=== PATIENT | male | born 1965 | race African-American/Black ===

== ENCOUNTER 2019-05-08 22:47 | Emergency (ER) | payer BC, OTHER ==
--- NOTE | 2019-05-08 22:49 | PDOC ---
History of Present Illness - General Chief Complaint: Pain, Acute Stated Complaint: EPIGASTRIC PAIN Time Seen by Provider: 05/08/19 22:49 History Source: Patient Exam Limitations: No Limitations - History of Present Illness Initial Comments: 05/08/19 23:08 Pt presents to the ED complaining of a 5 day history of RUQ pain radiating to the epigastrium. Denies fever, nausea or vomiting or change in bowel habits. Denies aggravating or aleviating factors. Pain feels "like a cramp" and is mild in severity. Seen in the ED at [facility] for the same complaint, had RUQ US by his report that was negative. Discharged home with motrin, that has not relieved his pain. Patient is concerned that he may have an ulcer. 05/08/19 23:16 Past History - Past Medical History Allergies/Adverse Reactions: Allergies Allergy/AdvReac Type Severity Reaction Status Date / Time No Known Allergies Allergy Verified 10/16/15 23:18 Home Medications: Ambulatory Orders Famotidine [Pepcid -] 20 mg PO BID #60 tablet 05/08/19 Hypercholesterolemia: Yes - Psycho Social/Smoking Cessation Hx Smoking Status: No Smoking History: Current some day smoker Have you smoked in the past 12 months: No Number of Cigarettes Smoked Daily: 1 Hx Alcohol Use: No Drug/Substance Use Hx: No Substance Use Type: None Review of Systems - Review of Systems Able to Perform ROS?: Yes Is the patient limited [place]an proficient: No Constitutional: No: Symptoms Reported, See HPI, Chills, Diaphoresis, Fever, Loss of Appetite, Malaise, Night Sweats, Weakness, Weight Stable, Unintentional Wgt. Loss, Unexplained wgt Loss, Other Respiratory: No: Symptoms reported, See HPI, Cough, Orthopnea, Shortness of Breath, SOB with Exertion, SOB at Rest, Stridor, Wheezing, Productive cough, Hemoptysis, Other Cardiac (ROS): No: Symptoms Reported, See HPI, Chest Pain, Edema, Irregular Heart Rate, Lightheadedness, Palpitations, Syncope, Chest Tightness, Other ABD/GI: Yes: See HPI, Other (abdominal pain). No: Abdominal Distended, Abd. Pain w/ defecation, Blood Streaked Bowels, Constipated, Diarrhea, Difficulty Swallowing, Nausea, Poor Appetite, Poor Fluid Intake, Rectal Bleeding, Vomiting , Indigestion, Abdominal cramping, Tarry Stools : No: Symptoms Reported, See HPI, Burning, Dysuria, Discharge, Frequency, Flank Pain, Hematuria, Incontinence, Pain, Urgency, Testicular Mass, Testicular Swelling, Lesions, Testicular Pain, Other Musculoskeletal: No: Symptoms Reported, See HPI, Back Pain, Gout, Joint Pain, Joint Swelling, Muscle Pain, Muscle Weakness, Neck Pain, Joint Stiffness, Other Integumentary: No: Symptoms Reported, See HPI, Bruising, Change in Color, Change in Hair/Nails, Dryness, Erythema, Flushing, Lesions, Lumps, Pallor, Pruritus, Rash, Sweating, Other Neurological: No: Symptoms reported, See HPI, Headache, Numbness, Paresthesia, Pre-Existing Deficit, Seizure, Tingling, Tremors, Weakness, Unsteady Gait, Ataxia, Dizziness, Other All Other Systems: Reviewed and Negative *Physical Exam - Physical Exam Comments: 05/08/19 23:16 Gen: alert, NAD, no m/r/g Pulm: CTA b/l Abdomen: soft, non tender, non distended without guarding or rebound CV: rr no m/r/g Neuro: alert and oriented x 3, CN grossly intact Psych: normal mood and affect skin: warm and dry, no rashes ED Treatment Course - LABORATORY CBC & Chemistry Diagram: 05/08/19 23:10 05/08/19 23:10 Medical Decision Making - Medical Decision Making 05/08/19 23:18 Pt presents to the ED complaining of RUQ/epigastric pain. Will check labs including LFTs. If LFTs are normal, will not repeat RUQ US. Will treat with pepcid and maalox and reassess. Likely discharge home with GI follow up if labs are negative. Discharge - Discharge Information Problems reviewed: Yes Clinical Impression/Diagnosis: Epigastric pain Condition: Good Disposition: HOME - Admission No - Follow up/Referral - Patient Discharge Instructions Patient Printed Discharge Instructions: DI for Abdominal Pain-Adult Additional Instructions: You came to the ED because you were having epigastric pain. This pain may be caused by irritation of the stomach lining or an ulcer. You should refrain from very greasy or spicy foods, and from medications containing naproxen or ibuprofen, as this may make the irritation worse. I have prescribed you pepcid , which may help with the pain. You should take it twice a day, even if you are not having pain. Maalox, which you can buy over the counter, may also give you some relief. Make sure you follow up with Dr. King. He may refer you to a blanker press operator if you continue to have symptoms. Return to the ED immediately for severe pain, severe nausea and vomiting, pain with fever, bloody vomit or stool, other new or worsening symptoms. - Post Discharge Activity
[2019-05-08 23:00] VITALS: BP 125/70; PULSE 80; TEMP 97.6; BMI 39.1
[2019-05-08] MEDS ORDERED: MAG HYDROX/AL HYDROX/SIMETH 30 ML UNIT-DOSE CUP PO ONE (23:08)
[2019-05-08] MEDS ORDERED: FAMOTIDINE 20 MG TABLET PO ONE (23:08)
[2019-05-08] MEDS ORDERED: FAMOTIDINE 20 MG TABLET ONE (23:12)
[2019-05-08] MEDS ORDERED: MAG HYDROX/AL HYDROX/SIMETH 30 ML UNIT-DOSE CUP ONE (23:12)
[2019-05-08 23:29] LABS: BASO % 0.9 % (0-2.0); HEMATOCRIT 43.6 % (35.4-49); HEMOGLOBIN 14.3 GM/dl (11.7-16.9); LYMPH % 28.3 % (8-40); MCHC 32.8 g/dl (32.0-35.9); MEAN CELL VOLUME 88.5 fl (80-96); MEAN PLT VOLUME 8.2 fl (7.5-11.1); MONO % 11.7 % (3.8-10.2); NEUT % 55.1 % (42.8-82.8); PLATELET COUNT 335 K/MM3 (134-434); RBC 4.93 M/mm3 (4.00-5.60); RDW 13.8 % (11.9-15.9); WHITE BLOOD COUNT 8.7 K/mm3 (4.0-10.8)
[2019-05-08 23:37] LABS: ALBUMIN 3.9 g/dl (3.4-5.0); BILIRUBIN,TOTAL 0.4 mg/dl (0.2-1); CALCIUM 8.9 mg/dl (8.5-10); CREATININE 1.3 mg/dl (0.55-1.3); POTASSIUM 4.3 mmol/L (3.5-5.1)
== END 2019-05-08 23:55 | disposition home or self-care (01) ==
LOC: FER 22:47
DX: R10.13 Epigastric pain (principal); F17.210 Nicotine dependence, cigarettes, uncomplicated
CPT/HCPCS: 36415; 80053; 85025; 99282-25